=== PATIENT | male | born 1980 | race Caucasian/White ===

== ENCOUNTER → 2021-05-25 12:41 | Outpatient (POV) | payer OTHER, SELFPAY ==
[2021-05-25 13:25] VITALS: BP 112/68; PULSE 70; RESP 18; O2SAT 95; BMI 16.7
--- NOTE | 2021-05-25 13:57 | [facility]H.PMCON ---
Assessment and Plan (1) Mid back pain Status: Chronic Category: Medical Code(s): M54.9 - Dorsalgia, unspecified (2) Hip pain Status: Chronic Category: Medical Code(s): M25.559 - Pain in unspecified hip - Assessment and plan all Dx Assessment and Plan for all problems:: We will schedule the patient for trigger point injections to his mid back area. We will also order him tramadol 50 mg 1 tablet p.o. 3 times daily. Patient has been called regarding his MRI with questionable inflammation versus infection. We will refer the patient out to neurosurgery. We will see him back in the clinic in 2 weeks for reevaluation of symptoms and for trigger point injection to his mid back. Possible side effects of corticosteroids have been discussed with the patient. Risks and benefits of the procedure have been explained to the patient. Patient would like to proceed with the procedure. Patient has been instructed to contact the clinic with any concerns before the next appointment. Risks and benefits of the medication have been explained in detail to the patient. The patient has been advised to consult with his/her primary care provider and pharmacist regarding drug-drug interaction of medications currently prescribed. Patient has been prescribed a controlled substance after being counseled on the medication, medication safety, and possible side effects. [facility] report has been obtained and reviewed prior to prescription and found to be appropriate. Opioid contract was reviewed and signed by the patient, and that they have agreed to all of the terms set forth by our compliance program. Patient has been instructed to contact the clinic with any concerns before the next appointment. Dr. Rashid has reviewed this note and agrees with this plan of care. This note was dictated using voice recognition software and make contain errors or omissions. HPI - Data of Consult Patient: new to practice Consult date: 05/25/21 Requesting Physician: Rachel Burton APRN Primary Care Provider: Belinda Storm - Consult Narrative Reason for consult: Mid back pain, left hip pain History of present illness: Mr. Moon is a 40 year old male who presents today for consultation for mid back pain with radiation into left hip. Patient says that he underwent lumbar fusion [id number] 2010. Shortly after the surgery, the patient developed infection, causing paraplegia. The hardware was exposed as well causing the patient to have his hardware removed. Patient is paraplegic. He does report his surgery was performed by Dr. Liudmila. The patient is managed with oral baclofen that he only takes as needed for muscle spasms. He says the only time he does take baclofen is if he notices muscle jerking in his legs. Patient says he is having pain in areas that he has not been able to feel since becoming paraplegic. He has pain in his left hip which she does not normally have any sensation. He is having mid back pain as well. This pain has been ongoing for the last 2 years. Patient does have an MRI from 03/25/2021 that is showing per his report? T11-T12 area with questionable osteomyelitis T11-T12 with severe spinal stenosis with cord compression moderate bilateral neuroforaminal narrowing at T11-T12, cannot rule out inflammation or infection . CC: Rachel Burton APRN [facility] History I have reviewed the patient's past medical history: Yes *Have you ever received a pneumonia vaccine?: No *Have you received a flu vaccine this season?: No - *Social History Smoking Status: Current some day smoker Alcohol Intake: never *Occupational Status:: unemployed *Travel in the last 8 weeks: None Family Hx:: No significant family history Review of Systems - Review of Systems Review of Systems General: No recent weight changes, no fever, no sleep disturbances Respiratory: No cough, no shortness of air, no recurring pulmonary infections Cardiovascular/peripheral vascular: No ch
== END ==
PROVIDERS: PCP Family Medicine; Visit Provider Clinical Nurse Specialist Family Health
DX: M54.9 Dorsalgia, unspecified (principal); M25.559 Pain in unspecified hip
CPT/HCPCS: 99202; G0463

== ENCOUNTER → 2021-06-08 14:17 | Day surgery (SDC) | payer OTHER, SELFPAY ==
[2021-06-08 14:21] VITALS: BP 140/87; PULSE 91; RESP 20; TEMP 37.1; BMI 16.7
--- NOTE | 2021-06-08 14:43 | HMH.PMPROC ---
- Procedure Date: 06/08/21 Time: 14:43 Anesthesiologist:: Rachel Burton APRN Complications:: None Pre-procedure Diagnosis:: Myofascial pain mid back Post-procedure Diagnosis:: Same Indications for Procedure:: Patient is a 40-year-old paraplegic male who presents today for myofascial pain mid back area. He is here today for trigger point injections to the area. He has radiation from mid back area into his left hip. He underwent lumbar fusion in 2010. Unfortunately the hardware did become infected causing him to have hardware removal. He did end up with paralysis following that surgery. He does have an MRI. The patient did discuss the MRI with his primary care provider who did not feel that the MRI was positive for osteomyelitis. He does have severe spinal stenosis with cord compression at T11-T12 area. The MRI did say infection cannot be ruled out. Patient was contacted regarding the MRI. He did report that his primary care provider did do thorough lab work to rule out osteomyelitis. I did discuss the patient with Dr. Rashid in detail. He did not feel comfortable proceeding with any type of epidural injection at this time. The MRI was also sent to Dr. Batres's office for review. We will perform trigger point injections to the area today to see if the patient gets relief. Risks and benefits of the procedure have been explained to the patient. Patient would like to proceed with the procedure. Side effects and risks and benefits of corticosteroids were explained to the patient in great detail. Physical exam General: Alert and oriented x3, no acute distress, pleasant and cooperative, [on room air] Lungs: Respirations even and unlabored, symmetrical chest expansion Eyes: PERRL Musculoskeletal: The patient of left thoracic [spine] somewhat guarded secondary to pain, paraplegic Neurological: Speech clear, Procedure Details:: Informed consent was obtained and the risk and benefits of the procedure was explained to the patient. Patient was taken to the procedure room. Thoracic paraspinous muscles were prepped using ChloraPrep. Trigger points were palpated and marked. Each of these trigger points were injected with bupivacaine 0.25% 3 mL and Depo-Medrol 10 mg. A total of[80] milligrams Depo-Medrol was used for bilateral trigger points of upper trapezius muscles and thoracic paraspinous muscles. Bandages were placed over the injection sites. Patient tolerated procedure well with no complications. Plan and Disposition:: We will contact Dr. Batres's office once again concerning the patient's MRI. Dr. Batres's office did not contact the patient regarding the MRI. Trigger point junctions were performed to the left thoracic paraspinous muscle today. He was started on tramadol 50 mg 1 tablet p.o. 3 times daily. He says his pain decreased significantly with the medication. He is at a 3 out of 10. We will continue him on this medication for now. We will plan to see him back in 1 month. Risks and benefits of the medication have been explained in detail to the patient. The patient has been advised to consult with his/her primary care provider and pharmacist regarding drug-drug interaction of medications currently prescribed. Patient has been prescribed a controlled substance after being counseled on the medication, medication safety, and possible side effects. [facility]O report has been obtained and reviewed prior to prescription and found to be appropriate. Opioid contract was reviewed and signed by the patient, and that they have agreed to all of the terms set forth by our compliance program. Patient has been instructed to contact the clinic with any concerns before the next appointment. Dr. Rashid has reviewed this note and agrees with this plan of care. This note was dictated using voice recognition software and make contain errors or omissions.
[2021-06-08 14:57] VITALS: BP 142/82; PULSE 97; RESP 18; O2SAT 99
[2021-06-08 14:58] VITALS: BP 138/81; PULSE 93; RESP 18; O2SAT 98
[2021-06-08 15:07] VITALS: BP 148/88; PULSE 91; RESP 20; O2SAT 99
== END ==
PROVIDERS: PCP Family Medicine; Visit Provider Clinical Nurse Specialist Family Health
DX: M79.18 Myalgia, other site (principal); Z88.0 Allergy status to penicillin; Z72.0 Tobacco use
CPT/HCPCS: 20552